=== PATIENT | female | born 1955 | race Caucasian/White ===

== ENCOUNTER → 2016-11-06 | Outpatient (CLI) | payer SELFPAY ==
[~2016-11-06] VITALS: Ht 157.5 cm; Wt 65.2 kg
[~2016-11-06] MED LIST: ADVIL200 MG PO; MULTIPLE VITAM1 EAC4 PO; NON-ASPIRIN PA325 MG PO; THERA TEARS NU1 EACH PO; THERA1 EAC1 PO
== END | disposition home or self-care (01) ==
LOC: AMB 08:00
DX: Z12.11 Encounter for screening for malignant neoplasm of colon (principal); D12.8 Benign neoplasm of rectum; K63.5 Polyp of colon; E78.2 Mixed hyperlipidemia; I10 Essential (primary) hypertension; Z88.0 Allergy status to penicillin
CPT/HCPCS: J2250; J3010